=== PATIENT | female | born 1955 | race Hispanic/Latino ===

== ENCOUNTER → 2025-02-21 | Outpatient (CLI) | payer MEDICARE ==
[~2025-02-21] MED LIST: IOHEXOL-350 50ML VIAL IV ONE
--- NOTE | 2025-02-21 13:09 | HMCIMG ---
EXAM: CT Head With and Without Intravenous Contrast. CLINICAL HISTORY: 69-year-old female with episodic tension-type headache. TECHNIQUE: Axial computed tomography images of the head/brain with and without intravenous contrast. Dose reduction technique was used including one or more of the following: automated exposure control, adjustment of mA and kV according to patient size, and/or iterative reconstruction. CONTRAST: Omnipaque 350, 50 mL COMPARISON: None. FINDINGS: BRAIN: No acute intraparenchymal hemorrhage. No CT evidence for acute territorial infarct. No midline shift or extra-axial collection. Negative for enhancing mass lesion. Mild cerebral and cerebellar atrophy. Mild chronic ischemic changes. VENTRICLES: No hydrocephalus. ORBITS: The orbits are unremarkable. SINUSES AND MASTOIDS: The paranasal sinuses and mastoid air cells are clear. SOFT TISSUES: No significant facial or scalp soft tissue swelling evident. No radiopaque foreign body is seen. BONES: No acute skull fracture. IMPRESSION: 1. No acute intracranial abnormality related to the clinical history of episodic tension-type headache. Negative for enhancing mass lesion 2. Mild cerebral and cerebellar atrophy and mild chronic ischemic changes. /[place]
== END | disposition home or self-care (01) ==
LOC: RAH 09:20
PROVIDERS: ATTEND Family Medicine
DX: I67.82 Cerebral ischemia (principal); G44.219 Episodic tension-type headache, not intractable
CPT/HCPCS: 70470; Q9967